=== PATIENT | male | born 1935 | race Caucasian/White ===

== ENCOUNTER 2017-06-01 14:35 | Emergency (ER) | payer OTHER ==
[~2017-06-01] VITALS: Ht 165.1 cm; Wt 55.0 kg
[2017-06-01 14:38] VITALS: TEMP 37.6; Ht 165.1 cm; Wt 55.0 kg
[2017-06-01] MEDS ORDERED: SODIUM CHLORIDE 0.9% 1000ML 1,000 ML IV STA (14:56)
--- NOTE | 2017-06-01 15:11 | EMERGENCY ROOM VISIT NOTE ---
History Report prepared by Jose: Robert Talley Under the Supervision of: Dr. Liang Chandra M.D. First contact with patient: 14:49 Chief Complaint: ILLNESS Stated Complaint: COLD, ACHEY, HOT, SORETHROAT History of Present Illness The patient is an 82 year old male who presents to the Emergency Room with complaints of a persistent illness that started upon waking this morning. He says that he felt okay yesterday. The patient states that he has been having a dry mouth with chills, nasal congestion, and a sore throat as well. The patient notes that his vision and hearing were spotty this morning, but he says that currently his vision and hearing are better. He notes that he has been losing weight over the past year. He weighed 148 last year, and is now around 120. Per the patient's daughter, the patient has a well-balanced diet and has been eating and drinking fine, including today. The patient's doctor notes that this loss of weight is due to the patient's low testosterone levels. The patient had a small fracture in December, and has been on Morphine ever since. There is concern that the patient's weakness for a while may be caused from the fracture. The patient denies any cough, dizziness, abdominal pain, diarrhea, urinary symptoms or constipation. Source of History: patient, family Onset: Upon waking this morning Position: other (global - illness) Timing: other (persistent) Associated Symptoms: + chills, + sorethroat, + weakness, No cough, No abdominal pain, No diarrhea, No urinary symptoms Note: Associated symptoms: Resolved spotty vision and hearing. Nasal congestion. Denies dizziness, constipation. Review of Systems See HPI for pertinent positives and negatives. A total of ten systems were reviewed and were otherwise negative. Past Medical & Surgical Medical Problems: (1) Decreased weight (2) Low bone density (3) Low testosterone in male Family History Family history omitted secondary to patient's advanced age. Social History Smoking Status: Never Smoker Smokeless Tobacco Use: No Marital Status: Housing Status: lives with family Current/Historical Medications Scheduled Alendronate/Cholecalciferol (Fosamax+D 70MG/2800 Iu), 1 TABLET PO WK Aspirin (Aspirin Ec), 81 MG PO DAILY Azithromycin (Azithromycin), 1 TAB PO DAILY Cholecalciferol (Vitamin D3), 1 CAP PO DAILY Diphenhy/Alum/Mag/Sucralfa (Magic Swizzle - Diphenhy/Alum/Mag/Sucralfa), 15 ML PO Q4H Fdsadjntgfx-Xbbpugmsmwq-Knl C- (Glucosamine Chondroitin), 1 TAB PO DAILY Hydrochlorothiazide (Hctz), 25 MG PO DAILY Lisinopril (Zestril), 20 MG PO DAILY Methylprednisolone (Medrol), 4 MG PO DAILY Multiple Vitamins W/ Minerals (Centrum Silver 50+Men), 1 TAB PO DAILY Oxycodone Hcl (Oxycontin), 20 MG PO Q12 Quinine Sulfate (Quinine Sulfate), 324 MG PO HS Simvastatin (Zocor), 80 MG PO HS Scheduled PRN Morphine Sulfate Ir (Morphine Sulfate Ir), 30 MG PO Q3H PRN for Pain Allergies Coded Allergies: Cyclobenzaprine (Unverified Allergy, Severe, FULL BODY RASH, 06/01/17) Physical Exam Vital Signs Date Time Temp Pulse Resp B/P (MAP) Pulse Ox O2 Delivery O2 Flow Rate FiO2 06/01/17 18:50 74 20 107/69 98 06/01/17 16:22 72 20 105/57 100 Room Air 06/01/17 14:38 37.6 97 20 109/65 100 Room Air Physical Exam GENERAL: Awake, alert, cachectic appearing, otherwise no acute distress. HENT: Normocephalic, atraumatic. Mucous membranes are dry. Mild injection in posterior pharynx. EYES: Normal conjunctiva. Sclera non-icteric. NECK: Supple. No nuchal rigidity. FROM. No JVD. RESPIRATORY: Clear to auscultation. CARDIAC: Regular rate, normal rhythm. Extremities warm and well perfused. Pulses equal. ABDOMEN: Soft, non-distended. No tenderness to palpation. No rebound or guarding. No masses. RECTAL: Deferred. MUSCULOSKELETAL: Chest examination reveals no tenderness. The back is symmetrical on inspection without obvious abnormality. There is no CVA tenderness to palpation. No joint edema. LOWER EXTREMITIES: Calves are equal size bilaterally and non-tender. No edema. No discoloration. NEURO: Normal sensorium. No sensory or motor deficits noted. SKIN: No rash or jaundice noted. Medical Decision & Procedures ER Provider Diagnostic Interpretation: X-ray: Per my interpretation, radiologist review. CHEST ONE VIEW PORTABLE CLINICAL HISTORY: sob dyspnea COMPARISON STUDY: None FINDINGS: Prior median sternotomy. Diaphragms are smooth. Mild right suprahilar atelectatic change. Lungs otherwise are clear. IMPRESSION: Minimal/mild right suprahilar atelectasis. Otherwise negative study. The above report was generated using voice recognition software. It may contain grammatical, syntax or spelling errors. Electronically signed by: Brendon Call M.D. 06/01/2017 3:36 PM Dictated Date/Time: 06/01/2017 3:35 PM Laboratory Results 06/01/17 15:48 Red Blood Count 3.40, Mean Corpuscular Volume 96.8, Mean Corpuscular Hemoglobin 31.8, Mean Corpuscular Hemoglobin Concent 32.8, Mean Platelet Volume 8.9, Neutrophils (%) (Auto) 95.2, Lymphocytes (%) (Auto) 2.0, Monocytes (%) (Auto) 2.6, Eosinophils (%) (Auto) 0.0, Basophils (%) (Auto) 0.1, Neutrophils # (Auto) 10.10, Lymphocytes # (Auto) 0.21, Monocytes # (Auto) 0.28, Eosinophils # (Auto) 0.00, Basophils # (Auto) 0.01 06/01/17 15:48 Test 06/01/17 15:48 White Blood Count 10.61 K/uL (4.8-10.8) Red Blood Count 3.40 M/uL (4.7-6.1) Hemoglobin 10.8 g/dL (14.0-18.0) Hematocrit 32.9 % (42-52) Mean Corpuscular Volume 96.8 fL (80-100) Mean Corpuscular Hemoglobin 31.8 pg (25-34) Mean Corpuscular Hemoglobin Concent 32.8 g/dl (32-36) Platelet Count 155 K/uL (130-400) Mean Platelet Volume 8.9 fL (7.4-10.4) Neutrophils (%) (Auto) 95.2 % Lymphocytes (%) (Auto) 2.0 % Monocytes (%) (Auto) 2.6 % Eosinophils (%) (Auto) 0.0 % Basophils (%) (Auto) 0.1 % Neutrophils # (Auto) 10.10 K/uL (1.4-6.5) Lymphocytes # (Auto) 0.21 K/uL (1.2-3.4) Monocytes # (Auto) 0.28 K/uL (0.11-0.59) Eosinophils # (Auto) 0.00 K/uL (0-0.5) Basophils # (Auto) 0.01 K/uL (0-0.2) RDW Standard Deviation 55.4 fL (36.4-46.3) RDW Coefficient of Variation 15.5 % (11.5-14.5) Immature Granulocyte % (Auto) 0.1 % Immature Granulocyte # (Auto) 0.01 K/uL (0.00-0.02) Anion Gap 6.0 mmol/L (3-11) Est Creatinine Clear Calc Drug Dose 41.7 ml/min Estimated GFR () 73.1 Estimated GFR (Non- 63.1 BUN/Creatinine Ratio 20.0 (10-20) Calcium Level 9.2 mg/dl (8.5-10.1) Phosphorus Level 3.5 mg/dl (2.5-4.9) Magnesium Level 1.8 mg/dl (1.8-2.4) Total Bilirubin 0.3 mg/dl (0.2-1) Direct Bilirubin 0.1 mg/dl (0-0.2) Aspartate Amino Transf (AST/SGOT) 33 U/L (15-37) Alanine Aminotransferase (ALT/SGPT) 41 U/L (12-78) Alkaline Phosphatase 61 U/L (45-117) Troponin I 0.040 ng/ml (0-0.045) Total Protein 6.8 gm/dl (6.4-8.2) Albumin 3.5 gm/dl (3.4-5.0) Lipase 95 U/L (73-393) Laboratory results reviewed by me Medications Administered Medications (Trade) Dose Ordered Sig/Yoanna Route Start Time Stop Time Status Last Admin Dose Admin Sodium Chloride 1,000 ml @ 999 mls/hr Q1H1M STAT IV 06/01/17 14:56 06/01/17 15:56 DC 06/01/17 14:56 999 MLS/HR ECG Indication: weakness Rate (beats per minute): 73 Rhythm: normal sinus Findings: no acute ischemic change, other (normal axis) Comparison ECG Date: no prior available ED Course 1454: The patient was evaluated in room C2B. A complete history and physical exam was performed. 1456: Ordered NSS 1000 ml @ 999 mls/hr IV. 172: I reevaluated the patient and he is feeling better after fluids. He denies any bloody or black stools. He prefers to not have a rectal exam. 174: [facility] labs from November are .2 which are the same from what is here today. 185: I reevaluated the patient and he is resting. Discussed results and discharge instructions: he verbalized understanding and agreement. The patient is ready for discharge. Medical Decision I reviewed the patient's past medical history, medications, and the nursing notes as described above. Differential diagnosis includes but is not limited to: viral syndrome vs dehydration, electrolyte imbalance, less likely pneumonia, UTI, ACS. The patient is an 82-year-old gentleman presents to the emergency department with generalized fatigue and nasal congestion and cough per history of present illness. Arrives in the department in no acute distress afebrile and stable vital signs. On exam the patient appears clinically dry with mild nasal congestion. Posterior pharynx with mild injection as well. Otherwise lungs are clear to auscultation bilaterally abdomen soft. Chest x-ray unremarkable. CBC within normal limits. BMP as well as LFTs unremarkable in the setting of the patient's report of weight loss over the past year. Troponin negative in the setting of greater than 12 hours of constant symptoms. Patient feeling improved after IV fluid hydration. Symptoms likely secondary to viral URI/ bronchitis. However, concerning the patient's age I discussed providing a prescription for azithromycin if he feels symptoms are not improving in the next couple of days. Otherwise the patient did express concern about being followed for his low testosterone and was requesting that we check this in the emergency department. I explained that this was a evaluation the best served by his primary care doctor or his specialist who could provide continuity and further treatment. Otherwise the patient was agreeable with the plan for PCP follow-up. Was discharged per [facility]. Medication Reconcilliation Current Medication List: was personally reviewed by me Blood Pressure Screening Patient's blood pressure: Normal blood pressure Impression Primary Impression: URI (upper respiratory infection) Scribe Attestation The scribe's documentation has been prepared under my direction and personally reviewed by me in its entirety. I confirm that the note above accurately reflects all work, treatment, procedures, and medical decision making performed by me. Departure Information Dispostion Home / Self-Care Prescriptions Azithromycin (Azithromycin) 250 Mg Tab 1 TAB PO DAILY for 5 Days, #6 TABS Take 2 tablets on day 1 and then 1 tablet each subsequent day. Prov: Liang Chandra M.D. 06/01/17 Referrals Liz Miller M.D. (PCP) Patient Instructions ED Upper Resp Infec No Abx Tx, My [facility] Additional Instructions Please follow up with your primary care physician in the next 1-3 days. Your exam, EKG, CXR, and lab results did not show signs of an emergent condition. You were mildly dehydrated just likely due to her upper respiratory infection. Considering you did not have a fever and your WBC was normal it is most likely a viral infection. However we will give you a prescription for azithromycin that you may take if you feel your symptoms are not improving over the next 1-2 days. Return to the emergency department for worsening symptoms as described in the accompanying instructions.
[2017-06-01] MEDS ORDERED: MAGIC1 PO (15:35)
[2017-06-01] MEDS ORDERED: MORP30TA PO (15:35)
[2017-06-01] MEDS ORDERED: QUIN1CAP5 PO (15:35)
[2017-06-01] MEDS ORDERED: CHOL2000 PO (15:35)
[2017-06-01] MEDS ORDERED: METH1TAB81 PO (15:35)
[2017-06-01] MEDS ORDERED: OXYC20TA50 PO (15:35)
[2017-06-01] MEDS ORDERED: FSMD/70 PO (15:35)
[2017-06-01] MEDS ORDERED: MULT-1093 PO (15:37)
[2017-06-01] MEDS ORDERED: HYDR25TA4 PO (15:37)
[2017-06-01] MEDS ORDERED: ASPI81TA28 PO (15:37)
[2017-06-01] MEDS ORDERED: SIMV80TA2 PO (15:37)
[2017-06-01] MEDS ORDERED: GLUCTAB7 PO (15:37)
[2017-06-01] MEDS ORDERED: LISI-725 PO (15:37)
--- NOTE | 2017-06-01 15:37 | DIAGNOSTIC IMAGING REPORT ---
CHEST ONE VIEW PORTABLE CLINICAL HISTORY: sob dyspnea COMPARISON STUDY: None FINDINGS: Prior median sternotomy. Diaphragms are smooth. Mild right suprahilar atelectatic change. Lungs otherwise are clear. IMPRESSION: Minimal/mild right suprahilar atelectasis. Otherwise negative study. The above report was generated using voice recognition software. It may contain grammatical, syntax or spelling errors. Electronically signed by: Brendon Call M.D. 06/01/2017 3:36 PM Dictated Date/Time: 06/01/2017 3:35 PM
[2017-06-01 16:00] LABS: BASO % 0.1 %; BASO ABS # 0.01 K/uL (0-0.2); COMPLETE YES; HEMATOCRIT 32.9 % (42-52); IG% 0.1 %; LYMPH ABS # 0.21 K/uL (1.2-3.4); MEAN CELL VOLUME 96.8 fL (80-100); MEAN CORPUSCULAR HEMOGLOBIN 31.8 pg (25-34); MEAN CORPUSCULAR HGB CONC 32.8 g/dl (32-36); MEAN PLATELET VOLUME 8.9 fL (7.4-10.4); MONO % 2.6 %; NEUT % 95.2 %; PLATELET COUNT 155 K/uL (130-400); WHITE BLOOD COUNT 10.61 K/uL (4.8-10.8)
[2017-06-01 16:18] LABS: CALCIUM 9.2 mg/dl (8.5-10.1); CREATININE 1.1 mg/dl (0.60-1.40); MAGNESIUM 1.8 mg/dl (1.8-2.4); POTASSIUM 4.1 mmol/L (3.5-5.1)
[2017-06-01 16:21] LABS: PHOSPHORUS 3.5 mg/dl (2.5-4.9)
[2017-06-01] MEDS ORDERED: ZTHM250 PO (18:49)
[2017-06-01 18:50] VITALS: BP 107/69; PULSE 74; O2SAT 98
== END 2017-06-01 19:00 | disposition home or self-care (01) ==
LOC: C.EDB 14:37 → C.EDC 19:00
DX: J06.9 Acute upper respiratory infection, unspecified (principal); Z79.82 Long term (current) use of aspirin; Z79.899 Other long term (current) drug therapy; Z88.8 Allergy status to other drugs, medicaments and biological substances